=== PATIENT | female | born 1995 | race Caucasian/White ===

== ENCOUNTER 2023-12-07 10:08 | Emergency (ER) | payer OTHER ==
[2023-12-07 10:23] VITALS: BP 110/92; PULSE 77; RESP 20; TEMP 97.6; BMI 26.7
[2023-12-07] MEDS ORDERED: ONDANSETRON *ODT* 4 MG TABLET ONE (11:05)
[2023-12-07] MEDS ORDERED: FAMOTIDINE 20 MG TABLET ONE (11:05)
[2023-12-07] MEDS ORDERED: MAG HYDROX/AL HYDROX/SIMETH 30 ML UNIT-DOSE CUP ONE (11:05)
[2023-12-07] MEDS: MAG HYDROX/AL HYDROX/SIMETH 30 ML UNIT-DOSE CUP PO ONE (11:17)
[2023-12-07] MEDS: ONDANSETRON *ODT* 4 MG TABLET SL ONE (11:17)
[2023-12-07] MEDS: FAMOTIDINE 20 MG TABLET PO ONE (11:17)
[2023-12-07] MEDS ORDERED: HALOPERIDOL LACTATE 5 MG/ML ONE (11:53)
[2023-12-07] MEDS: HALOPERIDOL LACTATE 5 MG/ML IM ONE (12:28)
== END 2023-12-07 13:11 | disposition home or self-care (01) ==
LOC: JER 10:08
PROC: 3E023GC Introduction of Other Therapeutic Substance into Muscle, Percutaneous Approach (ICD-10-PCS; principal; 2023-12-07)
DX: R11.2 Nausea with vomiting, unspecified (principal); R10.13 Epigastric pain; F12.90 Cannabis use, unspecified, uncomplicated
CPT/HCPCS: 84703; 93005; 93010; 96372; 99284-25; Q0162

== ENCOUNTER 2025-03-29 19:13 | Emergency (ER) | payer OTHER ==
[2025-03-29] MEDS ORDERED: ACETAMINOPHEN INJECTION 100 ML ONE (19:45)
[2025-03-29] MEDS ORDERED: ONDANSETRON 4 MG/2 ML VIAL ONE (19:45)
[2025-03-29 19:57] VITALS: BP 144/98; PULSE 61; RESP 19; TEMP 98.3; BMI 32.3
[2025-03-29] MEDS: ONDANSETRON 4 MG/2 ML VIAL IVPB ONE (20:02)
[2025-03-29] MEDS: SODIUM CHLORIDE 1,000 ML IV STA (20:02)
[2025-03-29] MEDS: ACETAMINOPHEN 1000 MG/100 ML BAG IVPB ONE (20:02)
[2025-03-29 20:10] LABS: ABSOLUTE IMMATURE GRANULOCYTES 0.04 x10^3/uL (0.0-0.031); BASOPHILS # 0.05 x10^3/uL (0.01-0.08); EOSINOPHIL % 0.8 % (0.7-5.8); EOSINOPHILS # 0.14 x10^3/uL (0.04-0.36); MCHC 33.7 g/dl (32.2-35.5); MEAN CELL VOLUME 85.9 fl (79.4-94.8); MEAN PLT VOLUME 9.5 fl (9.4-12.3); MONOCYTE # 0.50 x10^3/uL (0.24-0.86); MONOCYTE % 2.9 % (4.7-12.5); RDW 13.7 % (12.1-16.8)
[2025-03-29] MEDS ORDERED: LORazepam 2 MG/ML SDV VIAL ONE (20:21)
[2025-03-29 21:04] LABS: ALK PHOS 78.0 U/L (45-117); CO2 23.0 mmol/L (21-32); CREATININE 0.8 mg/dl (0.6-1.3); GLUCOSE,RANDOM 109.0 mg/dl (74-106); SGOT/AST 26.0 U/L (15-37); SGPT/ALT 33.0 U/L (7-52); TOT PROT 7.3 g/dl (6.4-8.2)
[2025-03-29 21:24] LABS: HCG,QUALITATIVE URINE Negative
[2025-03-29] MEDS ORDERED: IBUPROFEN 400 MG TABLET (FP) PO ONE (21:31)
[2025-03-29] MEDS: IBUPROFEN 400 MG TABLET (FP) PO ONE (21:33)
== END 2025-03-29 22:22 | disposition home or self-care (01) ==
LOC: FER 19:13
PROC: 3E033NZ Introduction of Analgesics, Hypnotics, Sedatives into Peripheral Vein, Percutaneous Approach (ICD-10-PCS; principal; 2025-03-29)
PROC: 3E033GC Introduction of Other Therapeutic Substance into Peripheral Vein, Percutaneous Approach (ICD-10-PCS; 2025-03-29)
PROC: 3E033GC Introduction of Other Therapeutic Substance into Peripheral Vein, Percutaneous Approach (ICD-10-PCS; 2025-03-29)
PROC: 3E0337Z Introduction of Electrolytic and Water Balance Substance into Peripheral Vein, Percutaneous Approach (ICD-10-PCS; 2025-03-29)
DX: K52.9 Noninfective gastroenteritis and colitis, unspecified (principal); R11.2 Nausea with vomiting, unspecified
CPT/HCPCS: 36415; 80053; 81003; 81015; 84703; 85025; 99284-25